=== PATIENT | female | born 1935 | race Hispanic/Latino ===

== ENCOUNTER 2018-02-08 12:05 | Inpatient (IN) | payer MEDICARE, BC ==
--- NOTE | 2018-02-08 13:00 | C.PDOC ---
History Of Present Illness 82 years old female with PMHx of diabetes and HTN is sent to ED by Carlo Pereira for admission for A-Fib. Denies chest pain, fever, or cough. Patient also states SOB on exertion. Time Seen by Provider: 02/08/18 12:48 Chief Complaint (Nursing): Palpitations History Per: Patient History/Exam Limitations: no limitations Onset/Duration Of Symptoms: Hrs Current Symptoms Are (Timing): Still Present Modifying Factors: None Exacerbating Factors: None Alleviating Factors: None Recent travel outside of the [place]: No Past Medical History Reviewed: Historical Data, Nursing Documentation, Vital Signs Vital Signs: Last Vital Signs Temp 98.3 F 02/10/18 09:14 Pulse 107 H 02/10/18 09:14 Resp 20 02/10/18 09:14 BP 109/74 02/10/18 10:15 Pulse Ox 97 02/10/18 09:14 - Medical History PMH: Diabetes, Hiatal Hernia, HTN Surgical History: Cholecystectomy Family History: States: Unknown Family Hx - Social History Hx Tobacco Use: No Hx Alcohol Use: No Hx Substance Use: No - Immunization History Hx Tetanus Toxoid Vaccination: No Hx Influenza Vaccination: Yes Hx Pneumococcal Vaccination: Yes Review Of Systems Constitutional: Negative for: Fever, Chills Respiratory: Positive for: Shortness of Breath Gastrointestinal: Negative for: Nausea, Vomiting, Abdominal Pain, Diarrhea Skin: Negative for: Rash Neurological: Negative for: Weakness, Numbness Physical Exam - Physical Exam Appears: Well, Non-toxic, No Acute Distress Skin: Warm, Dry Head: Atraumatic, Normacephalic Eye(s): bilateral: Normal Inspection, PERRL, EOMI Oral Mucosa: Moist Neck: Normal ROM, Supple Chest: Symmetrical, No Tenderness Cardiovascular: Rhythm Regular, No Murmur Respiratory: Normal Breath Sounds, No Decreased Breath Sounds, No Rales, No Rhonchi, No Wheezing Gastrointestinal/Abdominal: Soft, No Tenderness, No Distention, No Guarding, No Rebound Extremity: Normal ROM, No Tenderness, No Pedal Edema, No Deformity Extremity: Bilateral: Atraumatic, Normal Color And Temperature, Normal ROM Neurological/Psych: Oriented x3, Normal Speech Gait: Steady ED Course And Treatment - Laboratory Results Result Diagrams: 02/09/18 06:51 02/09/18 06:51 O2 Sat by Pulse Oximetry: 97 (RA) Pulse Ox Interpretation: Normal - Other Rad CXR X-Ray: Viewed By Me, Read By Radiologist Interpretation: PROCEDURE: CHEST RADIOGRAPH, 1 VIEW. HISTORY: chest pain. COMPARISON: None available. FINDINGS: LUNGS: Atelectatic changes at the lung bases, poor inspiratory effort accentuating these findings. PLEURA: No pneumothorax or pleural fluid seen. CARDIOVASCULAR: No radiographic findings to suggest acute or significant cardiovascular disease. OSSEOUS STRUCTURES: No significant abnormalities. VISUALIZED UPPER ABDOMEN: Normal. OTHER FINDINGS: None. IMPRESSION: Low lung volumes accentuating pulmonary markings at lung bases perhaps a component of atelectasis. Otherwise no significant findings. Medical Decision Making Medical Decision Making: Ordered EKG, blood work, CXR and urinalysis. 3:30PM: - Spoke with Gopi Mcmahon - Patient will be admitted Patient was sent by doctor from office for evaluation of HTN and prox- A-fIb No SOB except on exertion. Disposition - Disposition Disposition: HOSPITALIZED Disposition Time: 15:27 Condition: GOOD - Clinical Impression Clinical Impression: Palpitations, Paroxysmal A-fib - Scribe Statement The provider has reviewed the documentation as recorded by the Scribe Jenny Littlejohn All medical record entries made by the Scribe were at my direction and personally dictated by me. I have reviewed the chart and agree that the record accurately reflects my personal performance of the history, physical exam, medical decision making, and the department course for this patient. I have also personally directed, reviewed, and agree with the discharge instructions and disposition. Decision To Admit - Pt Status Changed To: Hospital Disposition Of: Inpatient - Admit Certification Admit to Inpatient:: After my assessment, the patient will require hospitalization for at least two midnights. This is because of the severity of symptoms shown, intensity of services needed, and/or the medical risk in this patient being treated as an outpatient. - InPatient: Physician Admission Certification: I certify that this patient requires 2 or more midnights of care for the following reason:: The pt referred to the ED by PCP after she was found to have hypotension and paroxysmal AF. - . Bed Request Type: Regular Admitting Physician: Chon Nguyễn Patient Diagnosis: Paroxysmal A-fib
--- NOTE | 2018-02-08 13:24 | RAD ---
PROCEDURE: CHEST RADIOGRAPH, 1 VIEW HISTORY: chest pain COMPARISON: None available. FINDINGS: LUNGS: Atelectatic changes at the lung bases, poor inspiratory effort accentuating these findings. PLEURA: No pneumothorax or pleural fluid seen. CARDIOVASCULAR: No radiographic findings to suggest acute or significant cardiovascular disease. OSSEOUS STRUCTURES: No significant abnormalities. VISUALIZED UPPER ABDOMEN: Normal. OTHER FINDINGS: None. IMPRESSION: Low lung volumes accentuating pulmonary markings at lung bases perhaps a component of atelectasis. Otherwise no significant findings.
[2018-02-08 13:48] LABS: EOS # 0.1 K/uL (0.0-0.7); HEMOGLOBIN 12.8 g/dL (11.0-16.0); INR 1.2; MEAN PLATELET VOLUME 9.2 fL (7.2-11.7)
[2018-02-08 13:58] LABS: ALBUMIN 3.9 g/dL (3.5-5.0); ALT/SGPT 15 U/L (9-52); AST/SGOT 26 U/L (14-36); BLOOD UREA NITROGEN 16 mg/dL (7-17); CALCIUM 9.4 mg/dl (8.6-10.4); GFR AFRICAN-AMERICAN > 60; GFR NON-AFRICAN AMERICAN > 60
[2018-02-08 14:09] LABS: B-TYPE NATRIURETIC PEPTIDE 117 pg/mL (0-900)
[2018-02-08 14:25] LABS: BASO # 0.1 K/uL (0.0-0.2); BASO % 0.6 % (0.0-2.0); EOS % 1.5 % (0.0-4.0); LYMPH # 2.3 K/uL (1.0-4.3); MEAN CELL VOLUME 90.6 fL (81.0-99.0); MEAN CORPUSCULAR HGB CONC 35.3 g/dL (33.0-37.0); MONO # 0.7 K/uL (0.0-0.8); MONO % 8.1 % (0.0-10.0); NEUT % 64.8 % (50.0-75.0); RBC 4.01 Mil/uL (3.80-5.20); RED CELL DISTRIBUTION WIDTH 13.2 % (11.5-14.5); WHITE BLOOD COUNT 9.2 K/uL (4.8-10.8)
[2018-02-08 16:00] LABS: SQUAMOUS EPITHIAL 14 /hpf (0-5); URINE BACTERIA MOD (<OCC); URINE BILIRUBIN NEGATIVE (NEGATIVE); URINE BLOOD NEGATIVE (NEGATIVE); URINE CLARITY Hazy (Clear); URINE COLOR Amber (YELLOW); URINE GLUCOSE (UA) NORMAL (Normal); URINE LEUKOCYTE ESTERASE 2+ Leu/uL (Negative); URINE PROTEIN 1+ mg/dL (NEGATIVE); URINE UROBILINOGEN NORMAL mg/dL (0.2-1.0)
[2018-02-08] MEDS ORDERED: Tramadol 25 mg PO STA ×2 (19:30→19:49)
[2018-02-08] MEDS ORDERED: Tramadol 25 mg PO PRN (19:36)
[2018-02-08] MEDS ORDERED: Tramadol 25 mg PO SCH (20:00)
[2018-02-09] MEDS ORDERED: Levothyroxine 50 MCG TAB PO SCH (06:30)
[2018-02-09 07:19] LABS: ALBUMIN 3.7 g/dL (3.5-5.0); ALT/SGPT 16 U/L (9-52); AST/SGOT 21 U/L (14-36); BLOOD UREA NITROGEN 16 mg/dL (7-17); CALCIUM 9.2 mg/dl (8.6-10.4); GFR AFRICAN-AMERICAN > 60; GFR NON-AFRICAN AMERICAN > 60
[2018-02-09 07:33] LABS: FREE T4 1.38 ng/dL (0.78-2.19)
[2018-02-09 07:41] LABS: HEMOGLOBIN 12.7 g/dL (11.0-16.0); MEAN CELL VOLUME 91.1 fL (81.0-99.0); MEAN CORPUSCULAR HEMOGLOBIN 30.9 pg (27.0-31.0); MEAN PLATELET VOLUME 9.1 fL (7.2-11.7); RBC 4.12 Mil/uL (3.80-5.20); RED CELL DISTRIBUTION WIDTH 13.3 % (11.5-14.5); WHITE BLOOD COUNT 9.2 K/uL (4.8-10.8)
[2018-02-09] MEDS ORDERED: Enoxaparin 40 mg Syringe SC SCH (10:00)
[2018-02-09] MEDS ORDERED: VALSARTAN 80 MG PO SCH (10:00)
--- NOTE | 2018-02-09 12:15 | CP.PCM.HP ---
History of Present Illness - History of Present Illness History of Present Illness: Mrs. Bria Kang is an 82 year-old female who presented to the office today complaining of fatigue and shortness of breath. Pt brought in her medications and the only new medication she is on is metoprolol 50 mg extended release 1 tab daily started by her lead radiation therapist after she was found to have insufficient blood flow to an an unrecalled area of her heart and her heart was beating fast. Soon after starting to take the medication she developed fatigue and shortness of breath. This was corroborated by patient's son who confirmed that she is unable to go shopping because she is easily tired and wants to go home and sleep all the time. Pt admitted that she is unable to get up at times from bed in the morning because she feels very tired. Patient had not called my office for this condition and the problem only incidentally found today after auscultation of her arm detected an irregularly regular rhythm After I explained to the patient my findings, I recommended to her that she should go to the hospital and that I would call 911 because of her unstable heart rhythm. Patient adamantly refused to go and explained that she had things to do that afternoon. Knowing that I would not win this argument without help, I asked if I could call her son and briefly explained the situation. Her son agreed with me 100% and spoke to his mother who still refused to go. Despite explaining to the patient that anything can happen with this rhythm, she said that she is 82 years old and she is ready to go. Her son came in person a few minutes later and took the patient to the hospital. Patient's blood pressure was 100/40 at the office and as her symptoms seem to coincide with the start of the beta yeison, I presumed that she is getting inadequate coronary perfusion and producing irregular electrical activity detected today. Present on Admission - Present on Admission Any Indicators Present on Admission: No History of DVT/PE: No History of Uncontrolled Diabetes: No Urinary Catheter: No Decubitus Ulcer Present: No Review of Systems - Review of Systems Systems not reviewed;Unavailable: Unstable Vital Signs - Constitutional Constitutional: Excessive Sweating, Headache, Weakness - EENT Ears: Other (hard of hearing) - Cardiovascular Cardiovascular: Irregular Heart Rhythm - Respiratory Respiratory: Cough, Dyspnea on Exertion - Gastrointestinal Gastrointestinal: Constipation - Menstruation Menstruation: Post Menopausal - Musculoskeletal Musculoskeletal: Muscle Weakness (generalized) - Neurological Neurological: Memory Loss (mild) Past Patient History - Tetanus Immunizations Tetanus Immunization: Unknown - Past Medical History & Family History Past Medical History?: Yes - Past Social History Smoking Status: Former Smoker Chewing Tobacco Use: No Cigar Use: No Occupation: retired nurse Drugs: Opiates, Prescription medications - CARDIAC Hx Cardiac Disorders: Yes Hx Hypertension: Yes - PULMONARY Hx Respiratory Disorders: No - NEUROLOGICAL Hx Neurological Disorder: No - HEENT Hx HEENT Problems: No Other/Comment: narrow esophagus - RENAL Hx Chronic Kidney Disease: No - ENDOCRINE/METABOLIC Hx Endocrine Disorders: Yes Hx Diabetes Mellitus Type 1: Yes - HEMATOLOGICAL/ONCOLOGICAL Hx Blood Disorders: No - INTEGUMENTARY Hx Dermatological Problems: No - MUSCULOSKELETAL/RHEUMATOLOGICAL Hx Musculoskeletal Disorders: Yes Hx Falls: Yes Hx Unsteady Gait: Yes - GASTROINTESTINAL Other/Comment: twisted bowel - GENITOURINARY/GYNECOLOGICAL Hx Genitourinary Disorders: No - PSYCHIATRIC Hx Psychophysiologic Disorder: No Hx Substance Use: No - SURGICAL HISTORY Hx Cataract Extraction: Yes (left) Hx Cholecystectomy: Yes - ANESTHESIA Hx Anesthesia: Yes Hx Anesthesia Reactions: No Hx Malignant Hyperthermia: No Has any member of the family had a problem w/ anesthesia?: No Meds Allergies/Adverse Reactions: Allergies Allergy/AdvReac Type Severity Reaction Status Date / Time No Known Allergies Allergy Verified 02/08/18 12:12 Physical Exam - Constitutional Appears: No Acute Distress - Head Exam Head Exam: ATRAUMATIC, NORMAL INSPECTION, NORMOCEPHALIC - Eye Exam Eye Exam: Normal appearance Pupil Exam: NORMAL ACCOMODATION - ENT Exam ENT Exam: Mucous Membranes Moist, Normal Exam - Neck Exam Neck exam: Positive for: Normal Inspection - Respiratory Exam Respiratory Exam: Respiratory Distress (speaking in phrases) - Cardiovascular Exam Cardiovascular Exam: Tachycardia, Irregular Rhythm - GI/Abdominal Exam GI & Abdominal Exam: Normal Bowel Sounds - Rectal Exam Rectal Exam: Deferred - Back Exam Back exam: NORMAL INSPECTION - Neurological Exam Neurological exam: Normal Gait, Oriented x3 (mild difficulty getting up and down from seated position) - Psychiatric Exam Psychiatric exam: Normal Affect, Normal Mood - Skin Skin Exam: Diaphoretic, Intact, Normal Color, Warm Results - Vital Signs Recent Vital Signs: Last Vital Signs Temp 97.9 F 02/09/18 07:00 Pulse 114 H 02/09/18 09:06 Resp 20 02/09/18 07:00 BP 143/83 02/09/18 07:00 Pulse Ox 96 02/09/18 07:00 - Labs Result Diagrams: 02/09/18 06:51 02/09/18 06:51 Labs: Laboratory Results - last 24 hr 02/08/18 02/08/18 02/08/18 13:30 13:30 13:30 WBC 9.2 RBC 4.01 Hgb 12.8 Hct 36.3 MCV 90.6 D MCH 32.0 H MCHC 35.3 RDW 13.2 Plt Count 226 MPV 9.2 Neut % (Auto) 64.8 Lymph % (Auto) 25.0 [place] % (Auto) 8.1 Eos % (Auto) 1.5 Baso % (Auto) 0.6 Neut # (Auto) 6.0 Lymph # (Auto) 2.3 [place] # (Auto) 0.7 Eos # (Auto) 0.1 Baso # (Auto) 0.1 PT 13.0 H INR 1.2 APTT 28 Sodium 139 Potassium 4.4 Chloride 102 Carbon Dioxide 26 Anion Gap 16 BUN 16 Creatinine 0.7 Est GFR ( Amer) > 60 Est GFR (Non-Af Amer) > 60 POC Glucose (mg/dL) Random Glucose 163 H Hemoglobin A1c Calcium 9.4 Phosphorus Magnesium Total Bilirubin 0.7 AST 26 ALT 15 Alkaline Phosphatase 65 Troponin I < 0.0120 NT-Pro-B Natriuret Pep 117 Total Protein 7.8 Albumin 3.9 Globulin 3.9 Albumin/Globulin Ratio 1.0 Free T4 TSH 3rd Generation Urine Color Urine Clarity Urine pH Ur Specific [place] Urine Protein Urine Glucose (UA) Urine Ketones Urine Blood Urine Nitrate Urine Bilirubin Urine Urobilinogen Ur Leukocyte Esterase Urine WBC (Auto) Ur Squamous Epith Cells Urine Bacteria 02/08/18 02/08/18 02/08/18 15:51 17:11 21:12 WBC RBC Hgb Hct MCV MCH MCHC RDW Plt Count MPV Neut % (Auto) Lymph % (Auto) [place] % (Auto) Eos % (Auto) Baso % (Auto) Neut # (Auto) Lymph # (Auto) [place] # (Auto) Eos # (Auto) Baso # (Auto) PT INR APTT Sodium Potassium Chloride Carbon Dioxide Anion Gap BUN Creatinine Est GFR ( Amer) Est GFR (Non-Af Amer) POC Glucose (mg/dL) 92 141 H Random Glucose Hemoglobin A1c Calcium Phosphorus Magnesium Total Bilirubin AST ALT Alkaline Phosphatase Troponin I NT-Pro-B Natriuret Pep Total Protein Albumin Globulin Albumin/Globulin Ratio Free T4 TSH 3rd Generation Urine Color [place] Urine Clarity Hazy Urine pH 5.0 Ur Specific [place] 1.028 Urine Protein 1+ H Urine Glucose (UA) Normal Urine Ketones Negative Urine Blood Negative Urine Nitrate Negative Urine Bilirubin Negative Urine Urobilinogen Normal Ur Leukocyte Esterase 2+ H Urine WBC (Auto) 70 H Ur Squamous Epith Cells 14 H Urine Bacteria Mod H 02/09/18 02/09/18 02/09/18 06:22 06:51 06:51 WBC 9.2 RBC 4.12 Hgb 12.7 Hct 37.5 MCV 91.1 MCH 30.9 MCHC 34.0 RDW 13.3 Plt Count 210 MPV 9.1 Neut % (Auto) Lymph % (Auto) [place] % (Auto) Eos % (Auto) Baso % (Auto) Neut # (Auto) Lymph # (Auto) [place] # (Auto) Eos # (Auto) Baso # (Auto) PT INR APTT Sodium 139 Potassium 4.1 Chloride 101 Carbon Dioxide 28 Anion Gap 14 BUN 16 Creatinine 0.8 Est GFR ( Amer) > 60 Est GFR (Non-Af Amer) > 60 POC Glucose (mg/dL) 129 H Random Glucose 125 H Hemoglobin A1c Calcium 9.2 Phosphorus 4.5 Magnesium 1.6 Total Bilirubin 1.1 AST 21 ALT 16 Alkaline Phosphatase 70 Troponin I NT-Pro-B Natriuret Pep Total Protein 7.4 Albumin 3.7 Globulin 3.7 Albumin/Globulin Ratio 1.0 Free T4 TSH 3rd Generation Urine Color Urine Clarity Urine pH Ur Specific [place] Urine Protein Urine Glucose (UA) Urine Ketones Urine Blood Urine Nitrate Urine Bilirubin Urine Urobilinogen Ur Leukocyte Esterase Urine WBC (Auto) Ur Squamous Epith Cells Urine Bacteria 02/09/18 02/09/18 02/09/18 06:51 06:51 11:20 WBC RBC Hgb Hct MCV MCH MCHC RDW Plt Count MPV Neut % (Auto) Lymph % (Auto) [place] % (Auto) Eos % (Auto) Baso % (Auto) Neut # (Auto) Lymph # (Auto) [place] # (Auto) Eos # (Auto) Baso # (Auto) PT INR APTT Sodium Potassium Chloride Carbon Dioxide Anion Gap BUN Creatinine Est GFR ( Amer) Est GFR (Non-Af Amer) POC Glucose (mg/dL) 129 H Random Glucose Hemoglobin A1c 6.7 H Calcium Phosphorus Magnesium Total Bilirubin AST ALT Alkaline Phosphatase Troponin I NT-Pro-B Natriuret Pep Total Protein Albumin Globulin Albumin/Globulin Ratio Free T4 1.38 TSH 3rd Generation 0.40 L Urine Color Urine Clarity Urine pH Ur Specific [place] Urine Protein Urine Glucose (UA) Urine Ketones Urine Blood Urine Nitrate Urine Bilirubin Urine Urobilinogen Ur Leukocyte Esterase Urine WBC (Auto) Ur Squamous Epith Cells Urine Bacteria - EKG Data EKG Interpreted by: Myself Rate: Tachycardia (hr 133, atrial fibrillation/SVT) - EKG Data When Compared to Previous EKG: Significant Changes Interpretation: Acute Arrhythmia Decision To Admit - Pt Status Changed To: Hospital Disposition Of: Inpatient - Admit Certification Admit to Inpatient:: After my assessment, the patient will require hospitalization for at least two midnights. This is because of the severity of symptoms shown, intensity of services needed, and/or the medical risk in this patient being treated as an outpatient. - InPatient: Physician Admission Certification:: After my assessment, the patient will require hospitalization for at least two midnights. This is because of the severity of symptoms shown, intensity of services needed, and/or the medical risk in this patient being treated as an outpatient. - . Bed Request Type: Telemetry
--- NOTE | 2018-02-09 16:10 | CP.PCM.CON ---
History of Present Illness - History of Present Illness History of Present Illness: Patient seen and evaluated Paraxysmal A Fib Normal stress test and EF [id number] score=4 High risk for stroke without anticoagulation Anticoagulants Benefits and risks explained to the patient Patient and Son agreed for treatment Will start Eliquis 5mg po bid Past Patient History - Tetanus Immunizations Tetanus Immunization: Unknown - Past Medical History & Family History Past Medical History?: Yes - Past Social History Smoking Status: Former Smoker Chewing Tobacco Use: No Cigar Use: No Occupation: retired nurse Drugs: Opiates, Prescription medications - CARDIAC Hx Cardiac Disorders: Yes Hx Hypertension: Yes - PULMONARY Hx Respiratory Disorders: No - NEUROLOGICAL Hx Neurological Disorder: No - HEENT Hx HEENT Problems: No Other/Comment: narrow esophagus - RENAL Hx Chronic Kidney Disease: No - ENDOCRINE/METABOLIC Hx Endocrine Disorders: Yes Hx Diabetes Mellitus Type 1: Yes - HEMATOLOGICAL/ONCOLOGICAL Hx Blood Disorders: No - INTEGUMENTARY Hx Dermatological Problems: No - MUSCULOSKELETAL/RHEUMATOLOGICAL Hx Musculoskeletal Disorders: Yes Hx Falls: Yes Hx Unsteady Gait: Yes - GASTROINTESTINAL Other/Comment: twisted bowel - GENITOURINARY/GYNECOLOGICAL Hx Genitourinary Disorders: No - PSYCHIATRIC Hx Psychophysiologic Disorder: No Hx Substance Use: No - SURGICAL HISTORY Hx Cataract Extraction: Yes (left) Hx Cholecystectomy: Yes - ANESTHESIA Hx Anesthesia: Yes Hx Anesthesia Reactions: No Hx Malignant Hyperthermia: No Has any member of the family had a problem w/ anesthesia?: No Meds Allergies/Adverse Reactions: Allergies Allergy/AdvReac Type Severity Reaction Status Date / Time No Known Allergies Allergy Verified 02/08/18 12:12 - Medications Medications: Current Medications Glimepiride (Amaryl) 4 mg PO BID [facility] Last Admin: 02/09/18 09:23 Dose: 4 mg Levothyroxine Sodium (Synthroid) 50 mcg PO DAILY@0630 [facility] Last Admin: 02/09/18 05:39 Dose: 50 mcg Losartan Potassium (Cozaar) 25 mg PO DAILY [facility] Last Admin: 02/09/18 09:22 Dose: 25 mg Metformin HCl (Glucophage Xr) 750 mg PO DAILY [facility] Last Admin: 02/09/18 11:00 Dose: Not Given Metoprolol Tartrate (Lopressor) 25 mg PO Q12 [facility] Last Admin: 02/09/18 12:57 Dose: 25 mg Rosuvastatin Calcium (Crestor) 5 mg PO DAILY [facility] Last Admin: 02/09/18 10:56 Dose: 5 mg Tramadol HCl (Ultram) 50 mg PO TID [facility] Last Admin: 02/09/18 14:48 Dose: 50 mg Results - Vital Signs Recent Vital Signs: Last Vital Signs Temp 97.9 F 02/09/18 07:00 Pulse 114 H 02/09/18 09:06 Resp 20 02/09/18 07:00 BP 129/75 02/09/18 12:57 Pulse Ox 96 02/09/18 07:00 - Labs Result Diagrams: 02/09/18 06:51 02/09/18 06:51 Labs: Laboratory Results - last 24 hr 02/08/18 02/08/18 02/09/18 17:11 21:12 06:22 WBC RBC Hgb Hct MCV MCH MCHC RDW Plt Count MPV Sodium Potassium Chloride Carbon Dioxide Anion Gap BUN Creatinine Est GFR ( Amer) Est GFR (Non-Af Amer) POC Glucose (mg/dL) 92 141 H 129 H Random Glucose Hemoglobin A1c Calcium Phosphorus Magnesium Total Bilirubin AST ALT Alkaline Phosphatase Total Protein Albumin Globulin Albumin/Globulin Ratio Free T4 TSH 3rd Generation 02/09/18 02/09/18 02/09/18 06:51 06:51 06:51 WBC 9.2 RBC 4.12 Hgb 12.7 Hct 37.5 MCV 91.1 MCH 30.9 MCHC 34.0 RDW 13.3 Plt Count 210 MPV 9.1 Sodium 139 Potassium 4.1 Chloride 101 Carbon Dioxide 28 Anion Gap 14 BUN 16 Creatinine 0.8 Est GFR ( Amer) > 60 Est GFR (Non-Af Amer) > 60 POC Glucose (mg/dL) Random Glucose 125 H Hemoglobin A1c 6.7 H Calcium 9.2 Phosphorus 4.5 Magnesium 1.6 Total Bilirubin 1.1 AST 21 ALT 16 Alkaline Phosphatase 70 Total Protein 7.4 Albumin 3.7 Globulin 3.7 Albumin/Globulin Ratio 1.0 Free T4 TSH 3rd Generation 02/09/18 02/09/18 06:51 11:20 WBC RBC Hgb Hct MCV MCH MCHC RDW Plt Count MPV Sodium Potassium Chloride Carbon Dioxide Anion Gap BUN Creatinine Est GFR ( Amer) Est GFR (Non-Af Amer) POC Glucose (mg/dL) 129 H Random Glucose Hemoglobin A1c Calcium Phosphorus Magnesium Total Bilirubin AST ALT Alkaline Phosphatase Total Protein Albumin Globulin Albumin/Globulin Ratio Free T4 1.38 TSH 3rd Generation 0.40 L
--- NOTE | 2018-02-10 03:22 | CP.PCM.PN ---
Subjective - Date & Time of Evaluation Date of Evaluation: 02/09/18 Time of Evaluation: 17:30 - Subjective Subjective: Patient seen and examined at bedside together with son and grandson. Patient appears more animated today and reports that she has more energy, does not feel short of breath. Patient's appetite was good today as well. Her son agrees that his mother is a different person from before. Patient had been visited by oil heat technician and his recommendation and treatment explained to patient. Patient was put on a Eliquis 5 mg twice a day as prophylaxis for her paroxysmal afib as prophylaxis against a potential stroke. Explained to patient that I was also adjusting her meds extensively in that I believe that part of the problem was her very low blood pressure which did not allow for adequate blood supply to her heart. As can be recalled, patient's diastolic was 40 mmHg at the office. Inasmuch as coronary perfusion occurs during diastole, it would be highly likely that the myocardium was not getting adequate asked oxygenation hence the sinus tachycardia/atrial fibrillation noted. Re-examination of patient's thyroid status also showed that patient may be overmedicated thus contributing to the tachycardia. Prospectively, medication changes will be forthcoming as well as discontinuation of levothyroxin to achieve optimal treatment of patient's condition. Objective - Vital Signs/Intake and Output Vital Signs (last 24 hours): Temp Pulse Resp BP Pulse Ox 98.3 F 87 20 115/65 95 02/09/18 23:05 02/09/18 23:05 02/09/18 23:05 02/09/18 23:05 02/09/18 23:05 Intake and Output: 02/09/18 02/10/18 18:59 06:59 Intake Total 360 Balance 360 - Medications Medications: Current Medications Apixaban (Eliquis) 5 mg PO BID [facility] Last Admin: 02/09/18 17:58 Dose: 5 mg Glimepiride (Amaryl) 4 mg PO BID [facility] Last Admin: 02/09/18 17:59 Dose: 4 mg Ibuprofen (Motrin Tab) 200 mg PO Q12 PRN PRN Reason: breakthrough pain Losartan Potassium (Cozaar) 25 mg PO DAILY [facility] Last Admin: 02/09/18 09:22 Dose: 25 mg Metformin HCl (Glucophage Xr) 750 mg PO DAILY [facility] Last Admin: 02/09/18 18:09 Dose: 750 mg Metoprolol Tartrate (Lopressor) 25 mg PO Q12 [facility] Last Admin: 02/09/18 22:47 Dose: Not Given Rosuvastatin Calcium (Crestor) 5 mg PO DAILY [facility] Last Admin: 02/09/18 10:56 Dose: 5 mg Tramadol HCl (Ultram) 50 mg PO TID [facility] Last Admin: 02/09/18 20:02 Dose: 50 mg - Labs Labs: 02/09/18 06:51 02/09/18 06:51 PT 13.0 SECONDS (9.7-12.2) H 02/08/18 13:30 INR 1.2 02/08/18 13:30 APTT 28 SECONDS (21-34) 02/08/18 13:30 - Constitutional Appears: No Acute Distress - Head Exam Head Exam: NORMAL INSPECTION - Eye Exam Eye Exam: EOMI, Normal appearance Pupil Exam: NORMAL ACCOMODATION - ENT Exam ENT Exam: Mucous Membranes Moist, Normal Exam - Neck Exam Neck Exam: Normal Inspection - Respiratory Exam Respiratory Exam: Clear to Ausculation Bilateral Additional comments: No shortness of breath noted - Cardiovascular Exam Cardiovascular Exam: REGULAR RHYTHM - GI/Abdominal Exam GI & Abdominal Exam: Normal Bowel Sounds - Rectal Exam Rectal Exam: Deferred - Back Exam Back Exam: NORMAL INSPECTION - Neurological Exam Neurological Exam: Alert, CN II-XII Intact, Oriented x3 Neuro motor strength exam: Left Upper Extremity: 4, Right Upper Extremity: 4, Left Lower Extremity: 4, Right Lower Extremity: 4 - Psychiatric Exam Psychiatric exam: Normal Affect, Normal Mood - Skin Skin Exam: Dry, Intact, Normal Color, Warm Assessment and Plan (1) Paroxysmal A-fib Assessment & Plan: appears back to sinus rhythm with marked arrythmia per EKG. Started on Eliquis by Cardio Status: Acute (2) Hypotension Assessment & Plan: blood pressure improved with decrease in pt's dosages of ARB and beta yeison Status: Acute (3) Shortness of breath Assessment & Plan: appears improved as well with normalization of HR Status: Acute
[2018-02-10] MEDS: Docusate-Senna 50 mg-8.6 mg Tab PO SCH ×2 (08:45→14:07)
[2018-02-10 15:58] VITALS: O2SAT 96
--- NOTE | 2018-02-10 19:54 | CARD ---
APPROVED REPORT EKG Measurement Heart [id number] <Conclusion> Sinus rhythm with marked sinus arrhythmia Otherwise normal ECG
--- NOTE | 2018-02-10 22:17 | CP.PCM.PN ---
Subjective - Date & Time of Evaluation Date of Evaluation: 02/10/18 Time of Evaluation: 14:10 - Subjective Subjective: Patient seen and evaluated Comfortable Denies chest pain and dyspnea Objective - Vital Signs/Intake and Output Vital Signs (last 24 hours): Temp Pulse Resp BP Pulse Ox 97.8 F 116 H 20 132/79 96 02/10/18 15:15 02/10/18 16:00 02/10/18 15:15 02/10/18 21:25 02/10/18 15:15 - Medications Medications: Current Medications Apixaban (Eliquis) 5 mg PO BID [facility], [facility] Last Admin: 02/10/18 18:59 Dose: 5 mg Famotidine (Pepcid) 20 mg PO Q12 [facility], [facility] Last Admin: 02/10/18 21:25 Dose: 20 mg Glimepiride (Amaryl) 4 mg PO BID [facility], [facility] Last Admin: 02/10/18 18:59 Dose: 4 mg Ibuprofen (Motrin Oral Susp) 200 mg PO Q12 PRN PRN Reason: breakthrough pain Losartan Potassium (Cozaar) 12.5 mg PO DAILY [facility], [facility] Metformin HCl (Glucophage Xr) 750 mg PO DAILY [facility] Last Admin: 02/10/18 19:00 Dose: 750 mg Metoprolol Tartrate (Lopressor) 50 mg PO Q12 [facility] Last Admin: 02/10/18 21:37 Dose: 50 mg Rosuvastatin Calcium (Crestor) 5 mg PO DAILY [facility] Last Admin: 02/10/18 10:21 Dose: 5 mg Senna/Docusate Sodium (Senokot S 50 Mg-8.6 Mg) 1 tab PO ACBL [facility], [facility] Last Admin: 02/10/18 14:07 Dose: 1 tab Tramadol HCl (Ultram) 50 mg PO TID [facility] Last Admin: 02/10/18 18:58 Dose: 50 mg - Labs Labs: 02/09/18 06:51 02/09/18 06:51 PT 13.0 SECONDS (9.7-12.2) H 02/08/18 13:30 INR 1.2 02/08/18 13:30 APTT 28 SECONDS (21-34) 02/08/18 13:30
--- NOTE | 2018-02-10 22:18 | CP.PCM.PN ---
Subjective - Date & Time of Evaluation Date of Evaluation: 02/10/18 Time of Evaluation: 22:17 - Subjective Subjective: Pt noted to still be having breakthroughs in her heart rate above 110s-120, with a low of high 70s. BP averages from 110s systolic to 140s, and diastole from 59-70s, much more acceptable than her pre-admission BP. Had talked with pt extensively last night as well, and pt very animated and did not exhibit any signs of shortness of breath nor needing to speak in phrases. Pt's anticoagulant started yesterday by Cardio and will continue outpatient. Will adjust pt's medications to allow for better rate control and lessen ARB for more wiggle room. Objective - Vital Signs/Intake and Output Vital Signs (last 24 hours): Temp Pulse Resp BP Pulse Ox 97.8 F 116 H 20 132/79 96 02/10/18 15:15 02/10/18 16:00 02/10/18 15:15 02/10/18 21:25 02/10/18 15:15 - Medications Medications: Current Medications Apixaban (Eliquis) 5 mg PO BID [facility] Last Admin: 02/10/18 18:59 Dose: 5 mg Famotidine (Pepcid) 20 mg PO Q12 [facility] Last Admin: 02/10/18 21:25 Dose: 20 mg Glimepiride (Amaryl) 4 mg PO BID [facility] Last Admin: 02/10/18 18:59 Dose: 4 mg Ibuprofen (Motrin Oral Susp) 200 mg PO Q12 PRN PRN Reason: breakthrough pain Losartan Potassium (Cozaar) 12.5 mg PO DAILY [facility] Metformin HCl (Glucophage Xr) 750 mg PO DAILY [facility] Last Admin: 02/10/18 19:00 Dose: 750 mg Metoprolol Tartrate (Lopressor) 50 mg PO Q12 [facility] Last Admin: 02/10/18 21:37 Dose: 50 mg Rosuvastatin Calcium (Crestor) 5 mg PO DAILY [facility] Last Admin: 02/10/18 10:21 Dose: 5 mg Senna/Docusate Sodium (Senokot S 50 Mg-8.6 Mg) 1 tab PO ACBL [facility] Last Admin: 02/10/18 14:07 Dose: 1 tab Tramadol HCl (Ultram) 50 mg PO TID [facility] Last Admin: 06/07/18 18:58 Dose: 50 mg - Labs Labs: 02/09/18 06:51 02/09/18 06:51 PT 13.0 SECONDS (9.7-12.2) H 02/08/18 13:30 INR 1.2 02/08/18 13:30 APTT 28 SECONDS (21-34) 02/08/18 13:30 - Constitutional Appears: No Acute Distress - Head Exam Head Exam: NORMAL INSPECTION - Eye Exam Eye Exam: Normal appearance Pupil Exam: NORMAL ACCOMODATION, PERRL - ENT Exam ENT Exam: Mucous Membranes Moist, Normal Exam - Neck Exam Neck Exam: Full ROM, Normal Inspection - Respiratory Exam Respiratory Exam: Clear to Ausculation Bilateral, NORMAL BREATHING PATTERN - Cardiovascular Exam Cardiovascular Exam: REGULAR RHYTHM - GI/Abdominal Exam GI & Abdominal Exam: Soft, Normal Bowel Sounds - Rectal Exam Rectal Exam: Deferred - Extremities Exam Extremities Exam: Normal Capillary Refill, Normal Inspection - Back Exam Back Exam: NORMAL INSPECTION - Neurological Exam Neurological Exam: Alert, Awake, CN II-XII Intact, Normal Gait, Oriented x3, Reflexes Normal Neuro motor strength exam: Left Upper Extremity: 5, Right Upper Extremity: 5, Left Lower Extremity: 4 (OA), Right Lower Extremity: 4 (OA) - Psychiatric Exam Psychiatric exam: Normal Affect, Normal Mood - Skin Skin Exam: Dry, Intact, Normal Color, Warm Assessment and Plan (1) Paroxysmal A-fib Assessment & Plan: rate better controlled now, and ARB decreased to work with metoprolol to keep blood pressure up without sacrificing rate control. Status: Acute (2) Hypotension Assessment & Plan: resolved Status: Resolved (3) Shortness of breath Status: Resolved
--- NOTE | 2018-02-11 05:35 | CARD ---
APPROVED REPORT EKG Measurement Heart [id number] <Conclusion> Sinus rhythm with marked sinus arrhythmia Cannot rule out Anterior infarct, age undetermined Abnormal ECG
--- NOTE | 2018-02-11 05:36 | CARD ---
APPROVED REPORT EKG Measurement Heart [id number] <Conclusion> Sinus tachycardia Possible Left atrial enlargement Borderline ECG
[2018-02-11 07:57] LABS: ALT/SGPT < 6 U/L (9-52); AST/SGOT 20 U/L (14-36); BLOOD UREA NITROGEN 14 mg/dL (7-17); CALCIUM 9.2 mg/dl (8.6-10.4); GFR AFRICAN-AMERICAN > 60; GFR NON-AFRICAN AMERICAN > 60
[2018-02-11] MEDS: Docusate-Senna 50 mg-8.6 mg Tab PO SCH ×2 (08:13→12:20)
[2018-02-11 08:16] LABS: HEMOGLOBIN 13.1 g/dL (11.0-16.0); MEAN CORPUSCULAR HEMOGLOBIN 32.2 pg (27.0-31.0); MEAN PLATELET VOLUME 9.2 fL (7.2-11.7); RBC 4.06 Mil/uL (3.80-5.20); RED CELL DISTRIBUTION WIDTH 12.9 % (11.5-14.5); WHITE BLOOD COUNT 9.8 K/uL (4.8-10.8)
[2018-02-11 08:26] LABS: B-TYPE NATRIURETIC PEPTIDE 134 pg/mL (0-900)
[2018-02-11] MEDS ORDERED: Losartan 12.5 MG TAB PO SCH (10:00)
--- NOTE | 2018-02-11 13:44 | CP.PCM.DIS ---
Provider - Provider Date of Admission: 02/08/18 15:27 Attending physician: Chon Nguyễn MD Primary care physician: Dr. Chon Nguyễn Consults: Cardiology: Dr. Yair Luis Time Spent in preparation of Discharge (in minutes): 30 Diagnosis - Discharge Diagnosis (1) Paroxysmal A-fib Status: Acute Priority: High Onset Date: 02/08/18 Comment: this was when abnormal rhythm detected, but pt had been feeling symptoms of shortness of breath and fatigue since October 2017 (2) Hypotension Status: Resolved Priority: High Comment: sequela of rapid HR with less ventricular filling (3) Shortness of breath Status: Resolved Comment: equivalent to hypoxemia 2ndry to decreased coronary perfusion Hospital Course - Lab Results Lab Results: Most Recent Lab Values WBC 9.8 K/uL (4.8-10.8) 02/11/18 07:22 RBC 4.06 Mil/uL (3.80-5.20) 02/11/18 07:22 Hgb 13.1 g/dL (11.0-16.0) 02/11/18 07:22 Hct 37.4 % (34.0-47.0) 02/11/18 07:22 MCV 92.0 fL (81.0-99.0) 02/11/18 07:22 MCH 32.2 pg (27.0-31.0) H 02/11/18 07:22 MCHC 35.0 g/dL (33.0-37.0) 02/11/18 07:22 RDW 12.9 % (11.5-14.5) 02/11/18 07:22 Plt Count 232 K/uL (130-400) 02/11/18 07:22 MPV 9.2 fL (7.2-11.7) 02/11/18 07:22 Neut % (Auto) 64.8 % (50.0-75.0) 02/08/18 13:30 Lymph % (Auto) 25.0 % (20.0-40.0) 02/08/18 13:30 [place] % (Auto) 8.1 % (0.0-10.0) 02/08/18 13:30 Eos % (Auto) 1.5 % (0.0-4.0) 02/08/18 13:30 Baso % (Auto) 0.6 % (0.0-2.0) 02/08/18 13:30 Neut # (Auto) 6.0 K/uL (1.8-7.0) 02/08/18 13:30 Lymph # (Auto) 2.3 K/uL (1.0-4.3) 02/08/18 13:30 [place] # (Auto) 0.7 K/uL (0.0-0.8) 02/08/18 13:30 Eos # (Auto) 0.1 K/uL (0.0-0.7) 02/08/18 13:30 Baso # (Auto) 0.1 K/uL (0.0-0.2) 02/08/18 13:30 PT 13.0 SECONDS (9.7-12.2) H 02/08/18 13:30 INR 1.2 02/08/18 13:30 APTT 28 SECONDS (21-34) 02/08/18 13:30 Sodium 137 mmol/L (132-148) 02/11/18 07:22 Potassium 4.5 mmol/L (3.6-5.2) 02/11/18 07:22 Chloride 99 mmol/L (98-107) 02/11/18 07:22 Carbon Dioxide 27 mmol/L (22-30) 02/11/18 07:22 Anion Gap 15 (10-20) 02/11/18 07:22 BUN 14 mg/dL (7-17) 02/11/18 07:22 Creatinine 0.7 mg/dL (0.7-1.2) 02/11/18 07:22 Est GFR ( Amer) > 60 02/11/18 07:22 Est GFR (Non-Af Amer) > 60 02/11/18 07:22 POC Glucose (mg/dL) 142 mg/dL (65-110) H 02/11/18 11:25 Random Glucose 128 mg/dL (65-105) H 02/11/18 07:22 Hemoglobin A1c 6.7 % (4.2-6.5) H 02/09/18 06:51 Calcium 9.2 mg/dl (8.6-10.4) 02/11/18 07:22 Phosphorus 3.9 mg/dL (2.5-4.5) 02/11/18 07:22 Magnesium 1.7 mg/dL (1.6-2.3) 02/11/18 07:22 Total Bilirubin 0.5 mg/dL (0.2-1.3) 02/11/18 07:22 AST 20 U/L (14-36) 02/11/18 07:22 ALT < 6 U/L (9-52) L D 02/11/18 07:22 Alkaline Phosphatase 70 U/L (38-126) 02/11/18 07:22 Troponin I < 0.0120 ng/mL (0.00-0.120) 02/08/18 13:30 NT-Pro-B Natriuret Pep 134 pg/mL (0-900) 02/11/18 07:22 Total Protein 7.8 g/dL (6.3-8.3) 02/11/18 07:22 Albumin 4.0 g/dL (3.5-5.0) 02/11/18 07:22 Globulin 3.8 gm/dL (2.2-3.9) 02/11/18 07:22 Albumin/Globulin Ratio 1.0 (1.0-2.1) 02/11/18 07:22 Free T4 1.38 ng/dL (0.78-2.19) 02/09/18 06:51 TSH 3rd Generation 0.48 mIU/L (0.46-4.68) 02/11/18 07:22 Urine Color [place] (YELLOW) 02/08/18 15:51 Urine Clarity Hazy (Clear) 02/08/18 15:51 Urine pH 5.0 (5.0-8.0) 02/08/18 15:51 Ur Specific [place] 1.028 (1.003-1.030) 02/08/18 15:51 Urine Protein 1+ mg/dL (NEGATIVE) H 02/08/18 15:51 Urine Glucose (UA) Normal mg/dL (Normal) 02/08/18 15:51 Urine Ketones Negative mg/dL (NEGATIVE) 02/08/18 15:51 Urine Blood Negative (NEGATIVE) 02/08/18 15:51 Urine Nitrate Negative (NEGATIVE) 02/08/18 15:51 Urine Bilirubin Negative (NEGATIVE) 02/08/18 15:51 Urine Urobilinogen Normal mg/dL (0.2-1.0) 02/08/18 15:51 Ur Leukocyte Esterase 2+ [place]/uL (Negative) H 02/08/18 15:51 Urine WBC (Auto) 70 /hpf (0-5) H 02/08/18 15:51 Ur Squamous Epith Cells 14 /hpf (0-5) H 02/08/18 15:51 Urine Bacteria Mod (<OCC) H 02/08/18 15:51 - Hospital Course Hospital Course: Pt seen at the office 4 days ago and was noted to be short of breath when she speaks. Finally I got the whole story that pt had been feeling this way since October 2017. Pt got so bad that she had lost the taste for shopping and eating. When auscultated and blood pressure taken, the undersigned noted the irregularly irregular rhythm with the rapid rate. After obtaining a bp of 100/40 , I advised pt that she needs to be admitted at the hospital which she absolutely refused. It was not until her son came to pick her up that she was bodily brought to the ER. The tachycardia was also noted at the ER, and pt admitted for further management. While in the hospital, pt's 2 blood pressure meds were adjusted to achieve rate control with adequate oxygenation. Once the goal was accomplished, pt was discharged home. Discharge Exam - Head Exam Head Exam: NORMAL INSPECTION - Eye Exam Eye Exam: Normal appearance Pupil Exam: NORMAL ACCOMODATION - ENT Exam ENT Exam: Normal Exam - Neck Exam Neck exam: Lymphadenopathy - Respiratory Exam Respiratory Exam: Clear to PA & Lateral, NORMAL BREATHING PATTERN - Cardiovascular Exam Cardiovascular Exam: Tachycardia, REGULAR RHYTHM - GI/Abdominal Exam GI & Abdominal Exam: Diminished Bowel Sounds - Rectal Exam Rectal Exam: Deferred - Extremities Exam Extremities exam: normal inspection - Neurological Exam Neurological exam: Abnormal Gait, Alert, CN II-XII Intact (eeeeee) - Psychiatric Exam Psychiatric exam: Normal Affect, Normal Mood Discharge Plan - Discharge Medications Prescriptions: Losartan [Cozaar] 12.5 mg PO DAILY 30 Days #30 tab Apixaban [Eliquis] 5 mg PO BID 30 Days #60 tab Metoprolol Tartrate [Lopressor] 50 mg PO Q12 30 Days #60 tab Docusate Sodium/Sennosides A [Senokot S 50 MG-8.6 MG] 1 tab PO ACBL 30 Days #60 tab - Follow Up Plan Condition: GOOD Disposition: HOME/ ROUTINE Patient education suggested?: Yes Additional Instructions: 1. Stop taking the valsartan and take losartan again. 2. Take losartan at 12.5 mg by mouth daily in the morning 3. Take metoprolol 50 mg 1 tab by mouth every 12 hoursl 4. Take Eliquis 5 mg by mouth every 12 hours 5. Stop taking aspirin 6. You may take Motrin or Advil 1 tablet by mouth in-between the tramadol doses but watch out for development of an ulcer or gastritis 7. I will send a month's prescription for all the medications you don't have. 8. You need to follow up with me at the office on Wednesday.02/14/2018
[2018-02-11 16:24] VITALS: PULSE 78
[2018-02-11 16:49] VITALS: BP 123/72; RESP 20; TEMP 98.1
--- NOTE | 2018-02-12 12:10 | CARD ---
APPROVED REPORT EKG Measurement Heart [id number] <Conclusion> Sinus rhythm with marked sinus arrhythmia Otherwise normal ECG
== END 2018-02-11 18:46 | disposition home or self-care (01) | DRG 310 ==
LOC: C.ER 12:05 → C.9E 15:27 → C.6T 16:26
PROVIDERS: ADMIT Family Medicine; ATTEND Family Medicine
DX: I48.0 Paroxysmal atrial fibrillation (principal); I95.89 Other hypotension; I10 Essential (primary) hypertension; E11.9 Type 2 diabetes mellitus without complications; R09.02 Hypoxemia; Z90.49 Acquired absence of other specified parts of digestive tract; Z87.891 Personal history of nicotine dependence

== ENCOUNTER 2018-12-20 13:20 | Outpatient (CLI) | payer MEDICARE, BC | END 2018-12-20 13:21 | disposition home or self-care (01) | LOC: C.CTH 13:21 | DX: I63.9 Cerebral infarction, unspecified (principal) ==